=== PATIENT | male | born 1975 | race African-American/Black ===

== ENCOUNTER 2017-10-25 21:13 | Emergency (ER) | payer OTHER, SELFPAY ==
[2017-10-25 21:22] VITALS: BP 140/90; PULSE 72; RESP 14; TEMP 36.9; O2SAT 99; BMI 26.5
--- NOTE | 2017-10-25 21:28 | ED_ITS ---
HPI - URI/Sore Throat <AMENA Nobles - Last Filed: 10/25/17 22:11> General Chief Complaint: Upper Respiratory Symptoms Stated Complaint: SORE THROAT WHITE PATCHES LEFT EAR PAIN Time Seen by Provider: 10/25/17 21:19 History of Present Illness HPI Narrative: 41-year-old male here for complaint of sore throat over the last several days. He states that he now has white spots to his tonsil area. He also states he has left ear pain. Positive p.o. intake. He denies any fevers or chills. He denies any exposure to other individuals that have similar symptoms. No other concerns or complaints at this time. He is able to speak full sentences. MD Complaint: sore throat Related Data Home Medications Medication Instructions Recorded Confirmed cholecalciferol (vitamin D3) 2,000 unit PO DAILY 10/25/17 10/25/17 [Vitamin D3] hydrochlorothiazide 25 mg PO DAILY 10/25/17 10/25/17 lisinopril 40 mg PO DAILY 10/25/17 10/25/17 nifedipine 60 mg PO DAILY 10/25/17 10/25/17 Previous Rx's Medication Instructions Recorded amoxicillin 500 mg PO BID #20 tab 10/25/17 dexamethasone 6 mg PO DAILY #2 tab 10/25/17 Allergies Allergy/AdvReac Type Severity Reaction Status Date / Time No Known Drug Allergies Allergy Verified 10/25/17 21:23 Review of Systems <AMENA Nobles - Last Filed: 10/25/17 22:11> Constitutional Denies chills, Denies fever(s), Denies lethargy and Denies weakness Eyes Denies change in vision, Denies eye discharge, Denies irritation and Denies loss of vision ENT Ears, Nose, Mouth, and Throat: Reports otalgia and Reports sore throat Cardiovascular Denies chest pain, Denies irregular heart rhythm, Denies lightheadedness, Denies palpitations, Denies dyspnea, Denies dyspnea on exertion and Denies orthopnea Respiratory Denies cough, Denies dyspnea, Denies dyspnea on exertion and Denies wheezing Gastrointestinal Gastrointestinal: Denies abdominal pain, Denies change in bowel habits, Denies diarrhea, Denies nausea and Denies vomiting Genitourinary Denies hematuria, Denies flank pain, Denies urinary incontinence and Denies urinary urgency Musculoskeletal Denies back pain, Denies muscle weakness, Denies numbness and Denies tingling Integumentary/Breasts Denies pruritus, Denies erythema, Denies rash and Denies wounds Neurologic Denies confusion, Denies loss of vision, Denies numbness, Denies tingling and Denies weakness Psychiatric Denies anxiety, Denies confusion, Denies depression, Denies homicidal ideation and Denies suicidal ideation Endocrine Denies palpitations Hematologic/Lymphatic Denies easy bruising Allergic/Immunologic Denies wheezing Exam <AMENA Nobles - Last Filed: 10/25/17 22:11> Initial Vital Signs Initial Vital Signs: Vital Signs Temperature 98.5 F 10/25/17 21:22 Pulse Rate 72 10/25/17 21:22 Respiratory Rate 14 10/25/17 21:22 Blood Pressure 140/90 H 10/25/17 21:22 Pulse Oximetry 99 10/25/17 21:22 Const General: cooperative and well developed Nutritional Appearance: well nourished Orientation: alert, awake, oriented x3 and not confused HENDE Mouth: oral mucosae normal and moist mucous membranes Throat: posterior oropharynx abnormal (Bilateral tonsillar swelling with white exudate and erythema.) Eyes Sclera: sclerae normal Cornea: corneas normal Pupils: PERRL Neck Neck: normal visual inspection, trachea midline, No lymphadenopathy, No midline deformity and No JVD Lymphatic: No lymphedema Resp Effort & Inspection: normal respiratory effort, able to speak in complete sentences, no respiratory distress and no use of accessory muscles Auscultation: clear to auscultation bilaterally, no rales, no rhonchi and no wheezes Cardio Rate: regular rate Rhythm: regular rhythm Heart Sounds: no click, no gallops, no murmurs and no rubs Skin General: no rashes or lesions noted, No jaundice and No petechiae <Adams Geronimo DO - Last Filed: 10/26/17 01:31> Initial Vital Signs Initial Vital Signs: Vital Signs Temperature 98.5 F 10/25/17 21:22 Pulse Rate 72 10/25/17 21:22 Respiratory Rate 14 10/25/17 21:22 Blood Pressure 140/90 H 10/25/17 21:22 Pulse Oximetry 99 10/25/17 21:22 Course <AMENA Nobles - Last Filed: 10/25/17 22:11> Orders Ordered: Discontinued Medications Amoxicillin (Trimox) 500 mg PO NOW ONE Stop: 10/25/17 21:48 Last Admin: 10/25/17 21:54 Dose: 500 mg Dexamethasone (Decadron) 10 mg PO NOW ONE Stop: 10/25/17 21:48 Last Admin: 10/25/17 21:55 Dose: 10 mg Vital Signs - 8 hr 10/25/17 21:22 Temperature 98.5 F Pulse Rate 72 Respiratory Rate 14 Blood Pressure 140/90 H Pulse Oximetry 99 <Adams Geronimo DO - Last Filed: 10/26/17 01:31> Orders Ordered: Discontinued Medications Amoxicillin (Trimox) 500 mg PO NOW ONE Stop: 10/25/17 21:48 Last Admin: 10/25/17 21:54 Dose: 500 mg Dexamethasone (Decadron) 10 mg PO NOW ONE Stop: 10/25/17 21:48 Last Admin: 10/25/17 21:55 Dose: 10 mg Vital Signs - 8 hr 10/25/17 21:22 Temperature 98.5 F Pulse Rate 72 Respiratory Rate 14 Blood Pressure 140/90 H Pulse Oximetry 99 MDM - URI/Sore Throat <AMENA Nobles - Last Filed: 10/25/17 22:11> [facility] Narrative Medical decision making narrative: Rapid strep test was obtained and was negative. However due to presentation of the tonsils with white exudate will empirically treat for strep pharyngitis to cover in case the false negative result. He is also given a few doses of dexamethasone to help with inflammation. Differential of a viral illness. Plenty of fluids. Over-the- counter Tylenol or Motrin as needed for any discomfort. Follow up with primary care provider later this week. For any worsening symptoms return to the emergency room. Discharge Plan Departure Patient Disposition: Home, Self-Care Clinical Impression: Pharyngitis Discharge Date/Time: 10/25/17 22:10 Interventions: ED Discharge Assessment Last Done: 10/25/17 22:10 Instructions: DI for Pharyngitis/Tonsillopharyngitis -- Adult Activity Restrictions/Additional Instructions: Rapid strep test was obtained and was negative. However due to presentation of the tonsils with white exudate will empirically treat for strep pharyngitis with an antibiotic amoxicillin to cover in case the false negative result. You have been prescribed a few doses of dexamethasone a steroid to help with inflammation use as directed.. Differential of a viral illness. Plenty of fluids. [id number] Tylenol or Motrin as needed for any discomfort. Follow up with primary care provider later this week. For any worsening symptoms return to the emergency room. Prescriptions: New dexamethasone 6 mg tablet 6 mg PO DAILY Qty: 2 RF: 0 amoxicillin 500 mg tablet 500 mg PO BID Qty: 20 RF: 0 No Action hydrochlorothiazide 25 mg tablet 25 mg PO DAILY RF: 0 nifedipine 60 mg tablet extended release 60 mg PO DAILY RF: 0 lisinopril 40 mg tablet 40 mg PO DAILY RF: 0 cholecalciferol (vitamin D3) [Vitamin D3] 2,000 unit Capsule 2,000 unit PO DAILY RF: 0 Referrals: [employer] [Provider Group] <Adams Geronimo DO - Last Filed: 10/26/17 01:31> Cosign ED Attending Branden Attestation: I was available for consultation during this patient's emergency department encounter
[2017-10-25] MEDS: AMOXICILLIN 250 MG CAPSULE 500 MG PO (21:54)
[2017-10-25] MEDS: DEXAMETHASONE 10 MG/ML VIAL PO (21:55)
== END 2017-10-25 22:10 | disposition home or self-care (01) ==
PROVIDERS: Emergency Provider Nurse Practitioner Family
DX: J02.9 Acute pharyngitis, unspecified (principal)
CPT/HCPCS: 87880; 99282; 99283; J1100

== ENCOUNTER 2018-02-13 16:13 | Emergency (ER) | payer OTHER, SELFPAY ==
[2018-02-13 16:17] VITALS: BP 139/93; PULSE 68; RESP 16; TEMP 36.9; O2SAT 97; BMI 25.5
--- NOTE | 2018-02-13 16:30 | ED.ABDPAIN ---
HPI - Abdominal Pain <AMENA Reed - Last Filed: 02/13/18 19:24> General Chief Complaint: Abdominal Pain Stated Complaint: states hernia Time Seen by Provider: 02/13/18 16:30 Source: patient Mode of arrival: ambulatory Limitations: no limitations History of Present Illness HPI narrative: lifting pool table last night, his belly button which was innie is now outie, and it hurts complaint: abdominal pain Pain Consistency: constant Location: periumbilical Severity: moderate Quality: sharp and dull Radiation: none Migration to: no migration Relieving factors: nothing Exacerbating factors: other (pushing on it) Context: recent injury Associated symptoms: denies other symptoms Related Data Home Medications Medication Instructions Recorded Confirmed cholecalciferol (vitamin D3) 2,000 unit PO DAILY 10/25/17 10/25/17 [Vitamin D3] hydrochlorothiazide 25 mg PO DAILY 10/25/17 10/25/17 lisinopril 40 mg PO DAILY 10/25/17 10/25/17 nifedipine 60 mg PO DAILY 10/25/17 10/25/17 Previous Rx's Medication Instructions Recorded amoxicillin 500 mg PO BID #20 tab 10/25/17 dexamethasone 6 mg PO DAILY #2 tab 10/25/17 Allergies Allergy/AdvReac Type Severity Reaction Status Date / Time No Known Drug Allergies Allergy Verified 02/13/18 16:15 Review of Systems <AMENA Reed - Last Filed: 02/13/18 19:24> Constitutional Reports as per HPI and Reports system reviewed and no additional complaints, except as docu Cardiovascular Denies chest pain and Denies dyspnea Respiratory Denies cough and Denies dyspnea Gastrointestinal Gastrointestinal: Reports as per HPI, Reports abdominal pain, Denies melena, Denies hematochezia, Denies constipation, Denies diarrhea and Denies vomiting Genitourinary Denies dysuria Musculoskeletal Denies back pain Exam <AMENA Reed - Last Filed: 02/13/18 19:24> Initial Vital Signs Initial Vital Signs: Vital Signs Temperature 98.4 F 02/13/18 16:17 Pulse Rate 68 02/13/18 16:17 Respiratory Rate 16 02/13/18 16:17 Blood Pressure 139/93 H 02/13/18 16:17 Pulse Oximetry 97 02/13/18 16:17 Const General: cooperative, healthy appearing, comfortable and well developed Nutritional Appearance: average body habitus Orientation: alert, awake and oriented x3 Resp Effort & Inspection: normal respiratory effort and able to speak in complete sentences Auscultation: clear to auscultation bilaterally Cardio Rate: regular rate Rhythm: regular rhythm Heart Sounds: S1 normal and S2 normal GI Inspection: normal to inspection and non-distended Palpation: soft and hernia (umbilical hernia) Auscultation: normal bowel sounds Back/Spine/Pelvis Cervical Spine: cervical ROM normal Thoracic/Lumbar Spine: thoraco-lumbar ROM limited Skin General: no rashes or lesions noted, elasticity normal, turgor normal and warm Neuro General: alert, awake and oriented x3 Cranial Nerves: CN's II-XI intact bilaterally Cognition: normal cognition Speech: speech normal Motor: muscle tone normal throughout Sensory Exam: no sensory deficits noted Psych Appearance: grossly normal and well kempt Mental Status: mental status grossly normal Speech and Movement: speech and movement normal Mood: congruent mood Affect: normal affect Attitude: cooperative Thought Process: normal Thought Content: normal Judgment: judgment good <Ai Ponce DO - Last Filed: 02/14/18 08:17> Initial Vital Signs Initial Vital Signs: Vital Signs Temperature 98.4 F 02/13/18 16:17 Pulse Rate 68 02/13/18 16:17 Respiratory Rate 16 02/13/18 16:17 Blood Pressure 139/93 H 02/13/18 16:17 Pulse Oximetry 97 02/13/18 16:17 Course <AMENA Reed - Last Filed: 02/13/18 19:24> Course Narrative: 1730 initial report from tech, umbilical hernia with fat involvement, no bowel, but wants radiologist to take a look at pt updated with current results and attempted to reduce hernia, hernia does reduce but within a minute or so, pops right back out 1900 all results and dc plan discussed, pt to f/u with pcp at [facility] tomorrow to see about surgery referral Orders Ordered: Discontinued Medications Ketorolac Tromethamine (Toradol) 30 mg IV NOW ONE Stop: 02/13/18 16:34 Last Admin: 02/13/18 17:31 Dose: 30 mg Vital Signs - 8 hr 02/13/18 16:17 Temperature 98.4 F Pulse Rate 68 Respiratory Rate 16 Blood Pressure 139/93 H Pulse Oximetry 97 <Ai Ponce DO - Last Filed: 02/14/18 08:17> Orders Ordered: Discontinued Medications Ketorolac Tromethamine (Toradol) 30 mg IV NOW ONE Stop: 02/13/18 16:34 Last Admin: 02/13/18 17:31 Dose: 30 mg Vital Signs - 8 hr 02/13/18 16:17 Temperature 98.4 F Pulse Rate 68 Respiratory Rate 16 Blood Pressure 139/93 H Pulse Oximetry 97 MDM - Abdominal Pain <AMENA Reed - Last Filed: 02/13/18 19:24> Differential Diagnosis Differential diagnosis: Likely abdominal pain, constipation and other (hernia) Lab Data Result diagrams: 02/13/18 17:18 02/13/18 17:18 Lab Results 02/13/18 02/13/18 Range/Units 17:18 17:18 WBC 5.3 (4.5-11.0) X10^3/uL RBC 5.10 (4.5-5.9) X10^6/uL Hgb 14.3 (13.5-17.5) g/dL Hct 42.0 (41-53) % MCV 82.4 (80-100) fL MCH 28.0 (26-34) PG MCHC 34.0 (30-36) % RDW 13.8 (11.6-14.8) % Plt Count 261 (150-400) X10^3/uL Neut % (Auto) 49.2 L (50-75) % Lymph % (Auto) 35.7 (25-40) % Edwards % (Auto) 10.2 (3-14) % Eos % (Auto) 3.7 (2-4) % Baso % (Auto) 1.2 (0-2) % Neut # (Auto) 2600 L (7434-6798) /uL Sodium 142 (137-145) mmol/L Potassium 3.7 (3.4-5.1) mmol/L Chloride 103 (98-107) mmol/L Carbon Dioxide 29 (22-32) mmol/L BUN 14 (9-20) mg/dL Creatinine 1.00 (0.66-1.25) mg/dL Estimated GFR > 60.0 (>60) mL/min BUN/Creatinine Ratio 14.0 (6-22) Glucose 87 (70-100) mg/dL Calcium 9.4 (8.4-10.2) mg/dL Total Bilirubin 0.5 (0.2-1.3) mg/dL AST 33 (17-59) IU/L ALT 39 (21-72) IU/L Alkaline Phosphatase 63 (38-126) U/L Total Protein 7.7 (6.3-8.2) g/dL Albumin 4.4 (3.5-5.0) g/dL Globulin 3.3 (1.7-4.1) g/dL Albumin/Globulin Ratio 1.3 (1.0-2.8) <Ai Ponce, DO - Last Filed: 02/14/18 08:17> Lab Data Lab Results 02/13/18 02/13/18 Range/Units 17:18 17:18 WBC 5.3 (4.5-11.0) X10^3/uL RBC 5.10 (4.5-5.9) X10^6/uL Hgb 14.3 (13.5-17.5) g/dL Hct 42.0 (41-53) % MCV 82.4 (80-100) fL MCH 28.0 (26-34) PG MCHC 34.0 (30-36) % RDW 13.8 (11.6-14.8) % Plt Count 261 (150-400) X10^3/uL Neut % (Auto) 49.2 L (50-75) % Lymph % (Auto) 35.7 (25-40) % Edwards % (Auto) 10.2 (3-14) % Eos % (Auto) 3.7 (2-4) % Baso % (Auto) 1.2 (0-2) % Neut # (Auto) 2600 L (9353-8249) /uL Sodium 142 (137-145) mmol/L Potassium 3.7 (3.4-5.1) mmol/L Chloride 103 (98-107) mmol/L Carbon Dioxide 29 (22-32) mmol/L BUN 14 (9-20) mg/dL Creatinine 1.00 (0.66-1.25) mg/dL Estimated GFR > 60.0 (>60) mL/min BUN/Creatinine Ratio 14.0 (6-22) Glucose 87 (70-100) mg/dL Calcium 9.4 (8.4-10.2) mg/dL Total Bilirubin 0.5 (0.2-1.3) mg/dL AST 33 (17-59) IU/L ALT 39 (21-72) IU/L Alkaline Phosphatase 63 (38-126) U/L Total Protein 7.7 (6.3-8.2) g/dL Albumin 4.4 (3.5-5.0) g/dL Globulin 3.3 (1.7-4.1) g/dL Albumin/Globulin Ratio 1.3 (1.0-2.8) Discharge Plan Departure Patient Disposition: Home Clinical Impression: Hernia, umbilical Discharge Date/Time: 02/13/18 19:35 Interventions: ED Discharge Assessment Last Done: 02/13/18 20:10 Instructions: DI Umbilical Hernia-Child Prescriptions: No Action hydrochlorothiazide 25 mg tablet 25 mg PO DAILY RF: 0 nifedipine 60 mg tablet extended release 60 mg PO DAILY RF: 0 lisinopril 40 mg tablet 40 mg PO DAILY RF: 0 cholecalciferol (vitamin D3) [Vitamin D3] 2,000 unit Capsule 2,000 unit PO DAILY RF: 0 dexamethasone 6 mg tablet 6 mg PO DAILY Qty: 2 RF: 0 amoxicillin 500 mg tablet 500 mg PO BID Qty: 20 RF: 0 Referrals: Alirio Koo MD [Physician] - Rosie Tam MD [Physician] - <Ai Ponce DO - Last Filed: 02/14/18 08:17> Cosign ED Attending Slavaature Attestation: I was immediately available in the department for consultation. Documentation has been reviewed. I agree with assessment and plan.
--- NOTE | 2018-02-13 16:33 | DI.US.S_ITS ---
PROCEDURE: US ABDOMEN LIMITED INDICATIONS: UMBILICAL MASS; POSSIBLE HERNIA TECHNIQUE: Real-time focused scanning was performed of the abdomen at the umbilicus, with image documentation. COMPARISON: None. FINDINGS: There is a fat-containing umbilical hernia with the hernia neck measuring 1.3 cm in greatest diameter and the hernia sac measuring 1.9 x 1.7 x 1.8 cm. Trace fluid is also identified within the hernia sac. Doppler imaging demonstrates preserved blood flow to the fat within the hernia sac at this time. The hernia does not significantly change with Valsalva maneuver. IMPRESSION: Fat-containing umbilical hernia as described above. Dictated by: Isiah Tatum M.D. on 02/13/2018 at 18:29 Approved by: Isiah Tatum M.D. on 02/13/2018 at 18:32
[2018-02-13 17:26] LABS: Add Manual Diff / Slide Review NO; Basophils Percent Auto 1.2 % (0-2); Eosinophils Percent Auto 3.7 % (2-4); Hemoglobin 14.3 g/dL (13.5-17.5); Lymphocytes Percent Auto 35.7 % (25-40); Mean Corpuscular Volume 82.4 fL (80-100); Monocytes Percent Auto 10.2 % (3-14); Neutrophils Absolute Auto 2600 /uL (3000-5900); Neutrophils Percent Auto 49.2 % (50-75); Platelet Count 261 X10^3/uL (150-400); Red Cell Distribution Width 13.8 % (11.6-14.8); White Blood Cell Count 5.3 X10^3/uL (4.5-11.0)
[2018-02-13] MEDS: KETOROLAC 60 MG/2 ML VIAL 30 MG IV (17:31)
[2018-02-13 17:36] LABS: Alanine Aminotransferase 39 IU/L (21-72); Albumin 4.4 g/dL (3.5-5.0); Albumin Globulin Ratio 1.3 (1.0-2.8); Alkaline Phosphatase 63 U/L (38-126); Aspartate Aminotransferase 33 IU/L (17-59); Bilirubin Total 0.5 mg/dL (0.2-1.3); Blood Urea Nitrogen 14 mg/dL (9-20); Calcium 9.4 mg/dL (8.4-10.2); Carbon Dioxide 29 mmol/L (22-32); Chloride 103 mmol/L (98-107); Estimated Glomerular Filt Rate > 60.0 mL/min (>60); Globulin 3.3 g/dL (1.7-4.1); Glucose 87 mg/dL (70-100); HEMOLYSIS < 15 (0-50); Potassium 3.7 mmol/L (3.4-5.1); Sodium 142 mmol/L (137-145); Total Protein 7.7 g/dL (6.3-8.2)
[2018-02-13 19:33] VITALS: BP 135/85; PULSE 54; RESP 15; O2SAT 98
== END 2018-02-13 19:35 | disposition home or self-care (01) ==
PROVIDERS: Emergency Provider Nurse Practitioner
DX: K42.9 Umbilical hernia without obstruction or gangrene (principal); X50.0XXA Overexertion from strenuous movement or load, initial encounter
CPT/HCPCS: 36591; 76705; 80053; 85025; 96374; 99282; 99284; J1885

== ENCOUNTER 2018-03-03 07:46 | Day surgery (SDC) | payer OTHER, SELFPAY ==
[2018-02-23 16:08] VITALS: BMI 25.5
[2018-03-03] VITALS (8 sets, daily range): BP systolic 108–132; BP diastolic 74–94; PULSE 60–82; RESP 12–19; TEMP 36.4–36.9; O2SAT 92–100; BMI 25.5
--- NOTE | 2018-03-03 08:10 | PM.PREOP ---
Pre-operative Note Interval Note Pre-op Check: Yes History & Physical Reviewed by Physician and Yes Exam Performed Changes: No
[2018-03-03] MEDS: LACTATED RINGERS 1,000 ML 42 ML IV (08:12)
--- NOTE | 2018-03-03 10:19 | SUR.OPER ---
Supine on padded OR bed, head on pillow, arms secured on padded arm boards at <90 degrees abduction, legs uncrossed, safety belt at thigh, tape over blanket over lower legs.
[2018-03-03] MEDS: CEFAZOLIN 2 GM/100 ML FROZ.PIGGY IV (10:45)
[2018-03-03] MEDS: BUPIVACAINE 0.5% (PF) VIAL 30 ML INJ (11:04)
[2018-03-03] MEDS: HYDROMORPHONE 2 MG INJ 0.5 MG IV ×4 (11:40→11:55)
--- NOTE | 2018-03-03 11:48 | SUR.PHASEI ---
bedside report given to JUANA Carballo. Pt in stable condition, vss. Transfered care of pt to Juana Carballo.
--- NOTE | 2018-03-03 11:51 | PM.OP.1 ---
Operative Date/Time/Diagnoses Date of procedure: 03/03/18 Time of procedure: 11:39 Pre-op diagnosis: Reducible umbilical hernia Post-op diagnosis: same (Same) Procedure & Clinicians Procedure: Repair with underlay of mesh Same procedure as scheduled: Yes Indications: Symptomatic hernia at the umbilicus Surgeon: Alirio Koo Click Yes if Unassisted: Yes Anesthesia Type: General Operative Notes Findings: Omental Fat within the hernia. Closure Type: primary Specimen(s): none sent Implants & Drains: Circular 1.7 in diameter Atrium mesh Estimated Blood Loss (mL): 5 Blood products transfused: none Procedure in detail: The patient was placed supine on the operating table and underwent general LMA anesthesia. He was prepped and draped in the usual fashion. Curvilinear incision was made beneath the umbilicus in the infraumbilical fold. It was carried down the level of the fascia. Hernia sac was entered under the skin and contained around it globule of fat which I reduced. The fascial edge was cleared of tissue and the peritoneum dissected off the abdominal wall. There was a defect in the peritoneum which was closed with 3 0 [id number] interrupted Vicryl. The mesh was placed external to the peritoneum but under the muscle wall. The tails were cut and suture used to incorporate them into the closure. The defect was rather small and only required 1 [id number]-[id number] and 1 simple stitch to close the defect. The umbilicus was tacked down to the fascia with an interrupted 3 0 Polysorb. The subcu was closed with interrupted 3 0 Polysorb. The skin was closed with a running 4 0 Polysorb subcuticular stitch and Steri-Strips. Dressing was applied the patient was awakened and taken recovery area in good condition. There were no apparent complications. Complications: none Condition: stable Disposition: PACU Plan for aftercare: Follow-up in the office
--- NOTE | 2018-03-03 11:57 | P.OP_ITS ---
Operative Date/Time/Diagnoses Date of procedure: 03/03/18 Time of procedure: 11:39 Pre-op diagnosis: Reducible umbilical hernia Post-op diagnosis: same (Same) Procedure & Clinicians Procedure: Repair with underlay of mesh Same procedure as scheduled: Yes Indications: Symptomatic hernia at the umbilicus Surgeon: Alirio Koo Click Yes if Unassisted: Yes Anesthesia Type: General Operative Notes Findings: Omental Fat within the hernia. Closure Type: primary Specimen(s): none sent Implants & Drains: Circular 1.7 in diameter Atrium mesh Estimated Blood Loss (mL): 5 Blood products transfused: none Procedure in detail: The patient was placed supine on the operating table and underwent general LMA anesthesia. He was prepped and draped in the usual fashion. Curvilinear incision was made beneath the umbilicus in the infraumbilical fold. It was carried down the level of the fascia. Hernia sac was entered under the skin and contained around it globule of fat which I reduced. The fascial edge was cleared of tissue and the peritoneum dissected off the abdominal wall. There was a defect in the peritoneum which was closed with 3 0 [id number]-[id number] interrupted Vicryl. The mesh was placed external to the peritoneum but under the muscle wall. The tails were cut and suture used to incorporate them into the closure. The defect was rather small and only required 1 vzmdcn-en-dokni and 1 simple stitch to close the defect. The umbilicus was tacked down to the fascia with an interrupted 3 0 Polysorb. The subcu was closed with interrupted 3 0 Polysorb. The skin was closed with a running 4 0 Polysorb subcuticular stitch and Steri-Strips. Dressing was applied the patient was awakened and taken recovery area in good condition. There were no apparent complications. Complications: none Condition: stable Disposition: PACU Plan for aftercare: Follow-up in the office
== END 2018-03-03 12:45 | disposition home or self-care (01) ==
PROVIDERS: Visit Provider Specialist
PROC: (CPT 49585; principal; 2018-03-03 09:15)
DX: K42.9 Umbilical hernia without obstruction or gangrene (principal); I10 Essential (primary) hypertension; Z87.891 Personal history of nicotine dependence
CPT/HCPCS: 49585; C1781; J0690; J1100; J1170; J2250; J2405; J2704; J3010

== ENCOUNTER 2021-01-08 05:57 | Emergency (ER) | payer OTHER, SELFPAY ==
[2021-01-08 06:05] VITALS: BP 126/80; PULSE 85; RESP 14; TEMP 36.3; O2SAT 99; BMI 26.4
--- NOTE | 2021-01-08 06:07 | ED.RECABL ---
HPI - Recheck/Abnormal Lab/Rx General Chief Complaint: Upper Respiratory Symptoms Stated Complaint: possible exposure Time Seen by Provider: 01/08/21 06:00 History of Present Illness HPI narrative: Patient is a 45-year-old male with history of hypertension presenting for need for COVID test. He and his family are trying to go to [place] [employer] is and the need have PCR COVID test so they can get across. He is vaccinated and is completely asymptomatic. 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 Related Data Home Medications Medication Instructions Recorded Confirmed cholecalciferol (vitamin D3) 50 2,000 unit PO DAILY 10/25/17 03/22/18 mcg (2,000 unit) capsule (Vitamin D3) hydrochlorothiazide 25 mg tablet 25 mg PO DAILY 10/25/17 03/22/18 lisinopril 40 mg tablet 40 mg PO DAILY 10/25/17 03/22/18 nifedipine 60 mg tablet,extended 60 mg PO DAILY 10/25/17 03/22/18 release Previous Rx's Medication Instructions Recorded oxycodone-acetaminophen 5 mg-325 See Rx Instructions .ROUTE 03/03/18 mg tablet (Percocet) .COMPLEX PRN #20 tab Allergies Allergy/AdvReac Type Severity Reaction Status Date / Time No Known Drug Allergies Allergy Verified 02/23/18 16:09 Review of Systems Review of Systems Narrative: GENERAL: Denies chills,fever HEENT: Denies throat pain RESPIRATORY: Denies dyspnea, cough, wheezing CARDIOVASCULAR: Denies chest pain, palpitations GASTROINTESTINAL: Denies nausea, vomiting MUSCULOSKELETAL: Denies extremity pain, injury SKIN: No rash, no laceration, no pruritus NEUROLOGIC: Denies weakness, dizziness, headache, numbness 8 point review of systems is negative except for those stated above and HPI Patient History Medical History (Updated 01/08/21 @ 06:09 by Ai Ponce DO) Hypertension Social History marital status: household members: spouse occupational status: employed Smoking Status: Former smoker alcohol intake: current substance use type: does not use Smoking Status: Former smoker alcohol intake frequency: a few times a week Substance Use Type: does not use Exam Initial Vital Signs Initial Vital Signs: Vital Signs Temperature 97.3 F L 01/08/21 06:05 Pulse Rate 85 08/25/21 06:05 Respiratory Rate 14 01/08/21 06:05 Blood Pressure 126/80 01/08/21 06:05 Pulse Oximetry 99 01/08/21 06:05 GENERAL: Well-appearing, well-nourished and in no acute distress. CARDIOVASCULAR: peripheral pulses in tact, cap refill <2 sec RESPIRATORY: No respiratory distress, speaks in full sentences without difficulty EXTREMITIES: Normal range of motion, no clubbing or edema. Neurovascularly intact NEUROLOGICAL: Cranial nerves II through XII grossly intact. Normal gait and speech. SKIN: Warm, dry, no petechiae, no rashes or lesions. Course Orders Ordered: ED Orders 01/08/21 06:00 COVID19 -Nasal swab/Pre-Proc Stat Vital Signs Vital signs: Vital Signs - 8 hr 01/08/21 06:05 Temperature 97.3 F L Pulse Rate 85 Respiratory Rate 14 Blood Pressure 126/80 Pulse Oximetry 99 MDM - Recheck/Abnormal Lab/Rx Lab Data Labs: Lab Results 01/08/21 Range/Units 06:00 SARS-CoV-2 (PCR) Negative (Negative) Discharge Plan Departure Patient Disposition: Home Clinical Impression: Worried well Instructions: DI for COVID-19 (Suspected or Confirmed ) Activity Restrictions/Additional Instructions: *You have been diagnosed with worried well *What to do: COVID test is negative *Continue to take medications as directed *Follow up with your primary care provider in 2-3 days *Return to ER if you should have any new, worsening or concerning symptoms Prescriptions: No Action hydrochlorothiazide 25 mg tablet 25 mg PO DAILY RF: 0 nifedipine 60 mg tablet extended release 60 mg PO DAILY RF: 0 lisinopril 40 mg tablet 40 mg PO DAILY RF: 0 cholecalciferol (vitamin D3) [Vitamin D3] 2,000 unit Capsule 2,000 unit PO DAILY RF: 0 oxycodone-acetaminophen [Percocet] 5-325 mg tablet See Rx Instructions .ROUTE .COMPLEX PRN (Reason: painful procedure) Qty: 20 RF: 0
[2021-01-08 06:19] LABS: COVID19 -Nasal RAPID Negative (Negative)
== END 2021-01-08 06:29 | disposition home or self-care (01) ==
PROVIDERS: Emergency Provider Emergency Medicine
DX: Z20.822 Contact with and (suspected) exposure to COVID-19 (principal)
CPT/HCPCS: 87635; 99281; C9803